=== PATIENT | male | born 1950 | race Two or more races ===

== ENCOUNTER 2021-03-09 15:08 | Inpatient (IN) ==
[2021-03-09 16:15] LABS: Hematocrit 43 % (42-52); Mean Corpuscular HGB Conc 35 g/dL (31-36); Mean Corpuscular Hemoglobin 32 pg (27-31); Mean Corpuscular Volume 94 fL (80-94); Mean Platelet Volume 8.4 fL (7.4-10.4); Platelet Count 244 10^3/uL (150-450); Red Blood Count 4.62 10^6 /uL (4.18-5.48); Red Cell Distribution Width 14 % (10-15); White Blood Count 10.6 10^3/uL (3.5-10.8)
[2021-03-09 16:20] LABS: Urine Appearance Cloudy; Urine Bilirubin Negative (Negative); Urine Blood Negative (Negative); Urine Color Amber; Urine Glucose Negative (Negative); Urine Ketones Trace (Negative); Urine Nitrite Negative (Negative); Urine Protein 1+(30 mg/dL) (Negative); Urine Specific Gravity 1.025 (1.002-1.030); Urine Urobilinogen Negative (Negative)
[2021-03-09 16:24] LABS: Activated Partial Thrombo Time 29.7 seconds (26.0-38.0); INR 1.09 (0.86-1.15)
[2021-03-09] MEDS: Lactated Ringers 1000 ml BAG 1,000 ML IV SCH (16:28)
[2021-03-09 16:35] LABS: Urine Bacteria Absent (Absent); Urine Red Blood Cell Absent (Absent); Urine Squamous Epithelial Cell Present (Absent); Urine White Blood Cell Absent (Absent)
[2021-03-09 16:46] LABS: Troponin I 0.01 ng/mL (<0.03)
[2021-03-09] MEDS ORDERED: Vancomycin 1,000 MG in NS 0.9% 250 ml 250 ML IVPB ONE (17:29)
[2021-03-09] MEDS ORDERED: Cefepime 2 GM in Dextrose 2 GM/50 ML BAG IV ONE (17:31)
[2021-03-09 17:39] LABS: ABS Eosinophils 0.2 10^3/ul (0-0.6); ABS Lymphocytes 3.3 10^3/ul (1.0-4.8); ABS Monocytes 2.1 10^3/ul (0-0.8); ABS Neutrophils 4.9 10^3/ul (1.5-7.7); ALT 31 U/L (7-52); Albumin 4.3 g/dL (3.2-5.2); Albumin/Globulin Ratio 1.2 (1-3); Alkaline Phosphatase 66 U/L (35-149); Blood Urea Nitrogen 20 mg/dL (6-24); C Reactive Protein 101.36 mg/L (<8.01); CO2 Carbon Dioxide 16 mmol/L (22-32); Chloride 99 mmol/L (101-111); EGFR Non-African American 40.5 (>60); Eosinophil % 2.2 %; Globulin 3.6 g/dL (2-4); Glucose 83 mg/dL (70-100); Lymphocyte % 31.1 %; RBC Morphology Normal (Normal); Sodium 131 mmol/L (135-145); Total Protein 7.9 g/dL (6.4-8.9)
[2021-03-09 17:46] LABS: Anion Gap 16 mmol/L (2-11)
[2021-03-09] MEDS ORDERED: Vancomycin per Pharmacy 1 EA NOTE FOLLOW UP SCH (19:00)
[2021-03-09] MEDS ORDERED: Thiamine 100 MG/ML 2 ml VIAL (200 mg) IV ONE (19:08)
[2021-03-09] MEDS ORDERED: Vancomycin 1,500 MG in NS 0.9% 250 ml 250 ML IVPB ONE (19:10)
[2021-03-09 19:33] LABS: EGFR African American 62.2 (>60); EGFR Non-African American 51.4 (>60); Magnesium 2.1 mg/dL (1.9-2.7); Potassium 4.1 mmol/L (3.5-5.0)
[2021-03-09] MEDS ORDERED: Iodixanol (CONTRAST) 320 MG/ML 100 ML SDV IV ONE (20:31)
[2021-03-09] MEDS: Enoxaparin 40 MG/0.4 ML SYR SUBCUT SCH (21:57)
[2021-03-09] MEDS: Multivitamins/Minerals TAB PO SCH (21:57)
[2021-03-09] MEDS ORDERED: Thiamine IV 100 MG in NS 0.9% 50 ML Q24H IV ONE (23:15)
[2021-03-09] MEDS ORDERED: Nicotine GUM 2MG FRUIT FLAVOR PO PRN (23:49)
[2021-03-10] MEDS: NS 0.9% 1000 ml BAG 1,000 ML IV SCH ×2 (02:34→13:18)
[2021-03-10] MEDS: Nicotine PATCH 14 MG/24 HR PATCH TRANSDERM SCH ×2 (03:44→10:46)
[2021-03-10 06:16] LABS: ABS Eosinophils 0.5 10^3/ul (0-0.6); ABS Lymphocytes 1.8 10^3/ul (1.0-4.8); ABS Monocytes 1.5 10^3/ul (0-0.8); ABS Neutrophils 3.8 10^3/ul (1.5-7.7); Eosinophil % 6.4 %; Hematocrit 36 % (42-52); Hemoglobin 12.7 g/dL (14.0-18.0); Lymphocyte % 23.8 %; Mean Corpuscular HGB Conc 35 g/dL (31-36); Mean Corpuscular Hemoglobin 32 pg (27-31); Mean Corpuscular Volume 93 fL (80-94); Mean Platelet Volume 8.1 fL (7.4-10.4); Platelet Count 200 10^3/uL (150-450); Red Blood Count 3.92 10^6 /uL (4.18-5.48); Red Cell Distribution Width 14 % (10-15); White Blood Count 7.6 10^3/uL (3.5-10.8)
[2021-03-10 06:26] LABS: INR 1.17 (0.86-1.15)
[2021-03-10] MEDS: Cefepime 2 GM in Dextrose 2 GM/50 ML BAG IV SCH ×2 (06:28→17:21)
[2021-03-10 06:37] LABS: Calcium 8.6 mg/dL (8.6-10.3); EGFR African American 73.9 (>60); EGFR Non-African American 61.1 (>60); Potassium 4.3 mmol/L (3.5-5.0)
[2021-03-10] MEDS: Multivitamins/Minerals TAB PO SCH (10:16)
[2021-03-10] MEDS ORDERED: Vancomycin 1,250 MG in NS 0.9% 250 ml 250 ML IVPB SCH (20:00)
[2021-03-10] MEDS: Enoxaparin 40 MG/0.4 ML SYR SUBCUT SCH (20:42)
[2021-03-11] MEDS: NS 0.9% 1000 ml BAG 1,000 ML IV SCH (03:23)
[2021-03-11] MEDS: Cefepime 2 GM in Dextrose 2 GM/50 ML BAG IV SCH (05:19)
[2021-03-11 07:30] VITALS: BP 115/64
[2021-03-11] MEDS: Multivitamins/Minerals TAB PO SCH (08:44)
[2021-03-11] MEDS: Nicotine PATCH 14 MG/24 HR PATCH TRANSDERM SCH (08:45)
[2021-03-12] MEDS ORDERED: Vancomycin Trough Check NOTE FOLLOW UP ONE (19:30)
[2021-03-12 23:16] LABS: Anaplasma phagocytophilum Negative (Negative); B. miyamotoi PCR, B Negative (Negative); Babesia divergens/MO-1 Negative (Negative); Babesia ducani Negative (Negative); Ehrlichia chaffeensis Negative (Negative); Ehrlichia ewingii/canis Negative (Negative); Ehrlichia muris eauclairensis Negative (Negative)
== END 2021-03-11 09:45 | disposition home or self-care (01) | DRG 872 ==
LOC: ED 15:08 → MED 18:48
PROVIDERS: ADMIT Internal Medicine; ATTEND Hospitalist